=== PATIENT | female | born 1985 | race Two or more races ===

== ENCOUNTER 2023-02-22 12:11 | Outpatient (CLI) | payer MEDICAID, SELFPAY ==
[2023-02-22 14:17] LABS: Clue Cells >20% Clue Cells Seen (None Seen); Trichomonas No Trichomonas Seen (None Seen); Yeast No Yeast Seen (None Seen)
[2023-02-22 15:31] LABS: Chlamydia DNA Amplified* NOT DETECTED (No Detected); GC DNA Amplified* NOT DETECTED (No Detected)
== END 2023-02-22 12:12 | disposition home or self-care (01) ==
PROVIDERS: PCP Family Medicine; Visit Provider Family Medicine
DX: Z00.00 Encounter for general adult medical examination without abnormal findings (principal); A60.00 Herpesviral infection of urogenital system, unspecified; N89.8 Other specified noninflammatory disorders of vagina; Z11.3 Encounter for screening for infections with a predominantly sexual mode of transmission; Z13.29 Encounter for screening for other suspected endocrine disorder
CPT/HCPCS: 80053; 82306; 82728; 84443; 85025; 87210; 87491; 87591

== ENCOUNTER 2023-12-21 13:30 | Outpatient (CLI) | payer MEDICAID, SELFPAY ==
--- NOTE | 2023-12-21 13:45 | MR_ITS ---
Patient: RISHABH GOMEZ Facility:?[facility] Patient ID:?[id number] Site Patient ID:?[id number]. Site :?[id number] Study:?MRI-Spine Lumbar w/o-12/21/2023 2:13:06 PM Ordering Physician:Humberto Hui Final Report: Indication: Low back pain. Technique: Multisequence multiplanar MRI of the lumbar spine without the use of intravenous contrast. Comparison: Correlated with CT abdomen/pelvis dated 09/14/2020. Findings: Grade 1 6 mm anterolisthesis at L5-S1. Vertebral heights are preserved. Mild edema in the opposing endplates at L5-S1 likely reflecting Modic type 1 degenerative endplate signal. The conus medullaris terminates at the L1-L2 level. The paraspinal soft tissues are unremarkable. T12-L1, L1-L2, L2-L3, and L3-L4: Symmetric disc bulging. No significant spinal canal or neural foraminal stenosis. L4-L5: Mild disc desiccation and height loss. Shallow symmetric disc bulge with small superimposed central disc protrusion containing a small horizontal annular fissure. Mild resulting narrowing of the lateral recesses and left neural foramen. No high-grade spinal canal stenosis or right neural foraminal narrowing. L5-S1: Moderate disc desiccation and height loss. Advanced facet joint hypertrophy with grade 1 anterolisthesis and disc uncovering. No high-grade spinal canal stenosis. Severe bilateral neural foraminal narrowing with impingement of the exiting L5 nerve roots. Impression: 1. At L4-L5, small central disc protrusion containing a horizontal annular fissure, mild narrowing of the lateral recesses, and mild left neural foraminal narrowing. 2. At L5-S1, advanced facet joint hypertrophy, grade 1 anterolisthesis with disc uncovering, and severe bilateral neural foraminal narrowing with impingement of the exiting L5 nerve roots. Dictated by Leroy Robles MD @ 12/22/2023 9:17:48 AM Signed by:?Leroy Robles MD @12/22/2023 9:17:48 AM (Electronic Signature)
== END 2023-12-21 13:31 | disposition home or self-care (01) ==
LOC: MRI 13:32
PROVIDERS: PCP Family Medicine; Visit Provider Family Medicine
DX: M54.50 Low back pain, unspecified (principal); M51.26 Other intervertebral disc displacement, lumbar region; M51.27 Other intervertebral disc displacement, lumbosacral region
CPT/HCPCS: 72148

== ENCOUNTER 2025-02-20 14:37 | Outpatient (CLI) | payer MEDICAID, SELFPAY ==
[2025-02-20 17:23] LABS: Trichomonas Trichomonas Seen (None Seen)
[2025-02-20 18:13] LABS: Chlamydia DNA Amplified* NOT DETECTED (No Detected); GC DNA Amplified* NOT DETECTED (No Detected)
== END 2025-02-20 14:38 | disposition home or self-care (01) ==
PROVIDERS: PCP Family Medicine; Visit Provider Family Medicine
DX: Z11.3 Encounter for screening for infections with a predominantly sexual mode of transmission (principal)
CPT/HCPCS: 80053; 82306; 82728; 85025; 86592; 86703; 87210; 87491; 87591

== ENCOUNTER 2025-03-21 12:59 | Outpatient (CLI) | payer MEDICAID, SELFPAY ==
[2025-03-21 14:27] LABS: Trichomonas No Trichomonas Seen (None Seen)
== END 2025-03-21 13:00 | disposition home or self-care (01) ==
LOC: FBOREF 12:59
PROVIDERS: PCP Family Medicine; Visit Provider Family Medicine
DX: A59.01 Trichomonal vulvovaginitis (principal); N76.0 Acute vaginitis; B96.89 Other specified bacterial agents as the cause of diseases classified elsewhere
CPT/HCPCS: 87210